=== PATIENT | male | born 1955 | race Caucasian/White ===

== ENCOUNTER 2017-04-09 09:21 | Observation (INO) | payer OTHER ==
[2017-04-09] VITALS (33 sets, daily range): BP systolic 103–141; BP diastolic 58–83; PULSE 54–80; RESP 12–29; Ht 170.2 cm; Wt 76.7 kg
[~2017-04-09] VITALS: Ht 170.2 cm; Wt 76.7 kg
[~2017-04-09 09:21] MED LIST: ASPI81TA3 PO; METO25TA4 PO; ROSU40TA35 PO; TICA90TA PO
[2017-04-09] MEDS ORDERED: ATOR40TA68 PO (09:52)
[2017-04-09] MEDS ORDERED: FAMO20TA18 PO (09:52)
[2017-04-09] MEDS ORDERED: LISI2.5T59 PO (09:53)
--- NOTE | 2017-04-09 10:19 | RADRPT ---
PROCEDURE: XR Chest AP portable CLINICAL INDICATION: Left heart cath TECHNIQUE: An AP portable radiograph of the chest was submitted. COMPARISON: 11/18/2015 FINDINGS: Support Hardware: None Cardiovascular: The cardiovascular silhouette appears unremarkable. Lung [place]: The lung [place] appear clear with no nodule, alveolar infiltrate, or interstitial promi nence evident. Pleural Spaces: No pneumothorax or pleural effusion is identified. Osseous Structures: The osseous structures appear intact. Soft Tissues: The soft tissues appear generous. IMPRESSION: Stable and unremarkable portable chest Physician Javid Date Time Electronically viewed and signed by Physician Javid on 04/09/2017 10:19 RH/
[2017-04-09] MEDS ORDERED: IODIXANOL LOCM 100 ML BTL ONE ×3 (11:05→12:37)
[2017-04-09] MEDS ORDERED: MIDAZOLAM 1 MG/ML 2 ML INJ ONE (11:05)
[2017-04-09] MEDS ORDERED: HEPARIN 1000 UNITS/ML 10 ML INJ ONE (11:05)
[2017-04-09] MEDS ORDERED: LIDOCAINE 1% (MDV) 20 ML INJ ONE (11:05)
[2017-04-09] MEDS ORDERED: VERAPAMIL 5 MG INJ ONE (11:06)
[2017-04-09] MEDS ORDERED: NITROGLYCERIN (IC) 100 MCG/ML INJ ONE (11:06)
[2017-04-09] MEDS ORDERED: FENTAnyl 50 MCG/ML VIAL ONE (11:06)
[2017-04-09] MEDS ORDERED: DIPHENHYDRAMINE 50 MG INJ ONE (11:31)
--- NOTE | 2017-04-09 11:59 | SIPON ---
Date/Time of Note Date/Time of Note DATE: 04/09/17 TIME: 11:57 Operative Report Preoperative Diagnosis angina and hx of cad and abnormal stress test Postoperative Diagnosis same Operation/Procedure Performed left heart cath Surgeon see signature line instructional support assistant none Anesthesia: moderate sedation, other Estimated blood loss: 0 - 10 ml's Transfusion Required none Specimen none Grafts/Implants none Complications none KENJI JACKSON MD Apr 09, 2017 11:59
--- NOTE | 2017-04-09 11:59 | SIPON ---
Date/Time of Note Date/Time of Note DATE: 04/09/17 TIME: 11:57 Operative Report Preoperative Diagnosis angina and hx of cad and abnormal stress test Postoperative Diagnosis same Operation/Procedure Performed left heart cath Surgeon see signature line sourcing assistant none Anesthesia: moderate sedation, other Estimated blood loss: 0 - 10 ml's Transfusion Required none Specimen none Grafts/Implants none Complications none KENJI JACKSON MD Apr 09, 2017 11:59
--- NOTE | 2017-04-09 11:59 | SIPON ---
Date/Time of Note Date/Time of Note DATE: 04/09/17 TIME: 11:57 Operative Report Preoperative Diagnosis angina and hx of cad and abnormal stress test Postoperative Diagnosis same Operation/Procedure Performed left heart cath Surgeon see signature line transition assistant none Anesthesia: moderate sedation, other Estimated blood loss: 0 - 10 ml's Transfusion Required none Specimen none Grafts/Implants none Complications none KENJI JACKSON MD Apr 09, 2017 11:59
[2017-04-09] MEDS ORDERED: BIVALIRUDIN 250MG /NS 50 ML 50 ML IVPB ONE (12:03)
[2017-04-09] MEDS ORDERED: CLOPIDOGREL 300 MG TAB ONE ×2 (12:03→12:45)
[2017-04-09] MEDS ORDERED: ADENOSINE 90 MG in SOD CHLORIDE 0.9% 90 ML IV SCH (13:00)
[2017-04-09] MEDS: SOD CHLORIDE 0.9% 1,000 ML IV SCH ×2 (13:12→19:00)
--- NOTE | 2017-04-09 13:12 | OPR ---
Date/Time of Note Date/Time of Note DATE: 04/09/17 TIME: 13:01 Operative Report Procedure Date: Apr 09, 2017 Preoperative Diagnosis CAD, ANGINA AND ABNORMAL STRESS TEST Postoperative Diagnosis same Surgeon see signature line Equal Opportunity Representative N/A Anesthesia Type: moderate sedation Estimated Blood Loss: none Transfusion none Specimen none Grafts/Implants none Complications none Procedure Description Habitat Biologist: Chao Concepcion MD Indication: 61 year old man with history of CAD, who underwent светлана angiography by Dr Gurwinder Seals for anginal chest pain and abnormal stress test. His angiogram showed multivessel disease and I was kindly asked by Dr. Anderson was taken to intervene. Procure performed: #1 Selective left coronary angioghraphy 2. Successful PTCA and stenting of 2 different branches of ramus intermediate using a 2.25x20 mm and 2.25x24 mm synergy GERRY 3. FFR (fractional flow measurement) of left circumflex artery 4. Closure of right femoral artery using an Angio-Seal device Findings: see Dr Purdy notes for detain of diagnostic светлана angio. 1. RI: is large. distally has 2 smaller branches each with about 80-90% stenosis ( ---->0% post PCI) 2. Left circumflex artery: is nondominant. it has 2 different about 60% stenosis . FFR was 0.87 consistent with a moderate but not hemodynamically significant stenosis. Procedure in detail: Written informed consent with obtained after risks benefits and alternatives discussed with the patient in detail. risks including but not limited to risk of infection vascular complications, bleeding complications, [place] stroke arrhythmia renal failure at even were discussed with the patient in detail. Patient was brought into the cardiac electroplating laborer and placed in supine position. Patient had already undergone diagnostic angiography by Dr. Rosaura weaver and sheath was already in place and right femoral angiogram had been done. At this time we decided to perform FFR measurements of the left circumflex artery. We ordered 3-/2 guide was advanced and engaged into the left main coronary artery. Once FFR wire was equilibrated it was placed proximal to the lesion and was equalized. Adenosine was a started and crossed the lesion. FFR measurement was done after about 3 minutes of adenosine infusion. FFR was at worst 0.87 consistent with a moderate but not hemodynamically significant stenosis. Wire was removed. At this time we decided to perform PCI of the ramus intermediate artery. BMW wire was used and advanced across the lesion and placed distal to the artery. I used a 2 x 12 mm balloon which was placed across the lesion and predilated the vessel. BMW wire was used and advanced across the 2nd lesion and placed distal to the artery. I used a 2 x 12 mm balloon which was placed across the lesion and predilated the vessel. Then I used a 2.25 x 20 mm stent which was placed across the lesion and deployed at 12 cristel. .Then I used a 2.25 x 24 mm stent which was placed across the 2nd lesion in the 2nd branch and deployed at 12 cristel. . Final angiographic view was obtained which showed IVONNE-3 flow no evidence of dissection and no significant residual stenosis at the site of the stent. angiseal was successfully deployed. Patient tolerated the procedure well with no complication. Conclusions: Successful PTCA stenting of the 2 branches of the ramus intermediate artery from 80-90% stenosis to no significant residual stenosis using a 2.25 stents. Recommendations: Aggressive medical therapy. aspirin indefinitely dual antiplatlet therapy with Plavix ICU care overnight. CHAO CONCEPCION MD [facility] CHAO CONCEPCION MD Apr 09, 2017 13:12
--- NOTE | 2017-04-09 13:12 | OPR ---
Date/Time of Note Date/Time of Note DATE: 04/09/17 TIME: 13:01 Operative Report Procedure Date: Apr 09, 2017 Preoperative Diagnosis CAD, ANGINA AND ABNORMAL STRESS TEST Postoperative Diagnosis same Surgeon see signature line Appliance Sales Associate N/A Anesthesia Type: moderate sedation Estimated Blood Loss: none Transfusion none Specimen none Grafts/Implants none Complications none Procedure Description Sausage Wrapper: Chao Concepcion MD Indication: 61 year old man with history of CAD, who underwent светлана angiography by Dr Gurwinder Seals for anginal chest pain and abnormal stress test. His angiogram showed multivessel disease and I was kindly asked by Dr. Anderson was taken to intervene. Procure performed: #1 Selective left coronary angioghraphy 2. Successful PTCA and stenting of 2 different branches of ramus intermediate using a 2.25x20 mm and 2.25x24 mm synergy GERRY 3. FFR (fractional flow measurement) of left circumflex artery 4. Closure of right femoral artery using an Angio-Seal device Findings: see Dr Purdy notes for detain of diagnostic светлана angio. 1. RI: is large. distally has 2 smaller branches each with about 80-90% stenosis ( ---->0% post PCI) 2. Left circumflex artery: is nondominant. it has 2 different about 60% stenosis . FFR was 0.87 consistent with a moderate but not hemodynamically significant stenosis. Procedure in detail: Written informed consent with obtained after risks benefits and alternatives discussed with the patient in detail. risks including but not limited to risk of infection vascular complications, bleeding complications, [place] stroke arrhythmia renal failure at even were discussed with the patient in detail. Patient was brought into the cardiac grinding and polishing laborer and placed in supine position. Patient had already undergone diagnostic angiography by Dr. Rosaura weaver and sheath was already in place and right femoral angiogram had been done. At this time we decided to perform FFR measurements of the left circumflex artery. We ordered 3-/2 guide was advanced and engaged into the left main coronary artery. Once FFR wire was equilibrated it was placed proximal to the lesion and was equalized. Adenosine was a started and crossed the lesion. FFR measurement was done after about 3 minutes of adenosine infusion. FFR was at worst 0.87 consistent with a moderate but not hemodynamically significant stenosis. Wire was removed. At this time we decided to perform PCI of the ramus intermediate artery. BMW wire was used and advanced across the lesion and placed distal to the artery. I used a 2 x 12 mm balloon which was placed across the lesion and predilated the vessel. BMW wire was used and advanced across the 2nd lesion and placed distal to the artery. I used a 2 x 12 mm balloon which was placed across the lesion and predilated the vessel. Then I used a 2.25 x 20 mm stent which was placed across the lesion and deployed at 12 cristel. .Then I used a 2.25 x 24 mm stent which was placed across the 2nd lesion in the 2nd branch and deployed at 12 cristel. . Final angiographic view was obtained which showed IVONNE-3 flow no evidence of dissection and no significant residual stenosis at the site of the stent. angiseal was successfully deployed. Patient tolerated the procedure well with no complication. Conclusions: Successful PTCA stenting of the 2 branches of the ramus intermediate artery from 80-90% stenosis to no significant residual stenosis using a 2.25 stents. Recommendations: Aggressive medical therapy. aspirin indefinitely dual antiplatlet therapy with Plavix ICU care overnight. CHAO CONCEPCION MD [facility] CHAO CONCEPCION MD Apr 09, 2017 13:12
--- NOTE | 2017-04-09 13:12 | OPR ---
Date/Time of Note Date/Time of Note DATE: 04/09/17 TIME: 13:01 Operative Report Procedure Date: Apr 09, 2017 Preoperative Diagnosis CAD, ANGINA AND ABNORMAL STRESS TEST Postoperative Diagnosis same Surgeon see signature line Substation Technician N/A Anesthesia Type: moderate sedation Estimated Blood Loss: none Transfusion none Specimen none Grafts/Implants none Complications none Procedure Description Optical Engineer: Chao Concepcion MD Indication: 61 year old man with history of CAD, who underwent светлана angiography by Dr Gurwinder Seals for anginal chest pain and abnormal stress test. His angiogram showed multivessel disease and I was kindly asked by Dr. Anderson was taken to intervene. Procure performed: #1 Selective left coronary angioghraphy 2. Successful PTCA and stenting of 2 different branches of ramus intermediate using a 2.25x20 mm and 2.25x24 mm synergy GERRY 3. FFR (fractional flow measurement) of left circumflex artery 4. Closure of right femoral artery using an Angio-Seal device Findings: see Dr Purdy notes for detain of diagnostic светлана angio. 1. RI: is large. distally has 2 smaller branches each with about 80-90% stenosis ( ---->0% post PCI) 2. Left circumflex artery: is nondominant. it has 2 different about 60% stenosis . FFR was 0.87 consistent with a moderate but not hemodynamically significant stenosis. Procedure in detail: Written informed consent with obtained after risks benefits and alternatives discussed with the patient in detail. risks including but not limited to risk of infection vascular complications, bleeding complications, [place] stroke arrhythmia renal failure at even were discussed with the patient in detail. Patient was brought into the cardiac labor mediator and placed in supine position. Patient had already undergone diagnostic angiography by Dr. Rosaura weaver and sheath was already in place and right femoral angiogram had been done. At this time we decided to perform FFR measurements of the left circumflex artery. We ordered 3-/2 guide was advanced and engaged into the left main coronary artery. Once FFR wire was equilibrated it was placed proximal to the lesion and was equalized. Adenosine was a started and crossed the lesion. FFR measurement was done after about 3 minutes of adenosine infusion. FFR was at worst 0.87 consistent with a moderate but not hemodynamically significant stenosis. Wire was removed. At this time we decided to perform PCI of the ramus intermediate artery. BMW wire was used and advanced across the lesion and placed distal to the artery. I used a 2 x 12 mm balloon which was placed across the lesion and predilated the vessel. BMW wire was used and advanced across the 2nd lesion and placed distal to the artery. I used a 2 x 12 mm balloon which was placed across the lesion and predilated the vessel. Then I used a 2.25 x 20 mm stent which was placed across the lesion and deployed at 12 cristel. .Then I used a 2.25 x 24 mm stent which was placed across the 2nd lesion in the 2nd branch and deployed at 12 cristel. . Final angiographic view was obtained which showed IVONNE-3 flow no evidence of dissection and no significant residual stenosis at the site of the stent. angiseal was successfully deployed. Patient tolerated the procedure well with no complication. Conclusions: Successful PTCA stenting of the 2 branches of the ramus intermediate artery from 80-90% stenosis to no significant residual stenosis using a 2.25 stents. Recommendations: Aggressive medical therapy. aspirin indefinitely dual antiplatlet therapy with Plavix ICU care overnight. CHAO CONCEPCION MD [facility] CHAO CONCEPCION MD Apr 09, 2017 13:12
[2017-04-09] MEDS ORDERED: ONDANSETRON 4 MG INJ IV PRN (13:30)
[2017-04-09] MEDS ORDERED: NITROGLYCERIN (SL) 0.4 MG TAB SL PRN (13:30)
[2017-04-09] MEDS ORDERED: ACETAMINOPHEN 325 MG TAB PO PRN (13:30)
[2017-04-09] MEDS ORDERED: AL HYDROX/MG HYDROX/SIMETH 30 ML CUP PO PRN (13:30)
--- NOTE | 2017-04-09 14:55 | OPR ---
DATE OF OPERATION: 04/09/2017 INDICATION FOR THE PROCEDURE: Abnormal cardiac stress test with history of coronary artery disease. The patient had ST depression in the lateral leads. Therefore, now presents for a cardiac catheteri zation. PROCEDURE: 1. Left heart catheterization. 2. Selective right coronary angiography. 3. Selective left coronary angiography. 4. A long and complex case due to the fact that attempted placement of a wire was performed from th e right radial region; however, the patient had a tortuous anatomy in the chest where the aorta and subclavian arteries. Therefore, right groin was then accessed. 5. Left ventriculogram. 6. Fluoroscopy and fluoroscopic use in order to guide needle placement to the vessel. 7. Conscious sedation for approximately 1 hour. 8. Autonomic nervous system interrogation. DESCRIPTION OF PROCEDURE: After informed consent was obtained by the patient, the patient was broug ht in to the cardiac catheterization laboratory where the patient's right radial region was prepped and draped in usual sterile fashion along with the right groin. Right radial stick was performed wi th no complication, sheath was placed. Following this, a wire was placed through the sheath in orde r to gain access into the aorta near the sinus of Valsalva. However, the tortuosity did not allow u s to place the wire into the aortic root region. Therefore, after multiple attempts and changing wi res and sheaths, therefore, the patient had placement of a catheter into the right femoral artery an d from here access was performed into the right coronary artery and left coronary artery, as well as left ventriculogram was also performed. FINDINGS: 1. The patient had a patent left main. The left main gave 2 branches to the LAD as well as the cir cumflex artery. 2. The LAD had approximately a 70-80%, vascular lesions in the middle of the vessel. 3. Septal perforators were patent. 4. The circumflex artery had 2 different regions in the proximal area where it was approximately 70 -80% stenotic. 5. The RCA was patent except for the distal region of the PDA which had approximately a 50% lesion. 6. The stent in the RCA was patent. 7. Left ventriculogram was performed and ejection fraction 65% and LVEDP was 13 mmHg with a blood p ressure 107/62. IMPRESSION: 1. There is 2-vessel disease present at the current moment, which will require intervention, at mara st an FFR. I have contacted Dr. Concepcion who attended to the patient. And Dr. Concepcion will performed the FFR. In the event that the FFR is positive, the patient will received stents. Dictated By: KENJI JACKSON MD LP/NTS Conf#: [id number] DID#: [id number]
--- NOTE | 2017-04-09 14:57 | RADRPT ---
Vent Rate: 68 bpm RR Interval: 0 msec [place] Interval: 140 msec QRS Duration: 102 msec QT Interval: 430 msec QTC Interval: 457 msec P-R-T [place]: 68 - 12 - 34 degrees Normal sinus rhythm Possible Inferior infarct , age undetermined Abnormal ECG Electronically Signed By: Dawit Palmer [id number]
--- NOTE | 2017-04-09 14:57 | RADRPT ---
Vent Rate: 68 bpm RR Interval: 0 msec [place] Interval: 140 msec QRS Duration: 102 msec QT Interval: 430 msec QTC Interval: 457 msec P-R-T [place]: 68 - 12 - 34 degrees Normal sinus rhythm Possible Inferior infarct , age undetermined Abnormal ECG Electronically Signed By: Dawit Palmer [id number]
--- NOTE | 2017-04-09 14:57 | RADRPT ---
Vent Rate: 68 bpm RR Interval: 0 msec [place] Interval: 140 msec QRS Duration: 102 msec QT Interval: 430 msec QTC Interval: 457 msec P-R-T [place]: 68 - 12 - 34 degrees Normal sinus rhythm Possible Inferior infarct , age undetermined Abnormal ECG Electronically Signed By: Dawit Palmer [id number]
[2017-04-09] MEDS: FAMOTIDINE 20 MG TAB PO SCH (15:02)
[2017-04-09] MEDS: ASPIRIN 81 MG TAB PO SCH (15:06)
[2017-04-09] MEDS: morphine 2 MG INJ IV PRN ×3 (16:27→22:55)
--- NOTE | 2017-04-09 16:28 | QN ---
Documentation Comment [id number] SALLY RETANA MD Apr 09, 2017 16:28
--- NOTE | 2017-04-09 16:28 | QN ---
Documentation Comment [id number] SALLY RETANA MD Apr 09, 2017 16:28
--- NOTE | 2017-04-09 16:28 | QN ---
Documentation Comment [id number] SALLY RETANA MD Apr 09, 2017 16:28
[2017-04-09] MEDS ORDERED: LORAZEPAM 2 MG INJ IV PRN (16:30)
[2017-04-09] MEDS: OXYCODONE/ACETAMINOPHEN (5/325) TAB PO PRN (19:54)
[2017-04-09] MEDS ORDERED: ATORVASTATIN 40 MG TAB PO SCH (21:00)
[2017-04-09] MEDS ORDERED: ISOSORBIDE DINITRATE 20 MG TAB PO SCH (21:00)
[2017-04-09] MEDS ORDERED: METOPROLOL 25 MG TAB PO SCH (21:00)
[2017-04-10] VITALS (19 sets, daily range): BP systolic 90–115; BP diastolic 61–71; PULSE 53–66; RESP 12–29
[2017-04-10] MEDS: OXYCODONE/ACETAMINOPHEN (5/325) TAB PO PRN (00:23)
[2017-04-10] MEDS: DOCUSATE SODIUM 100 MG CAP PO SCH ×2 (00:23→08:29)
--- NOTE | 2017-04-10 01:08 | HP ---
DATE OF ADMISSION: 04/09/2017 HISTORY OF PRESENT ILLNESS: Lindsey Sellers is a 61-year-old male who has a history of STEMI, history of PCI with RCA stent placed in April 2015, history of CAD, hypertension, dyslipidemia, history of gastritis. Patient now presents for coronary angiogram, underwent angiogram and PCI and is being seen post-procedure. PAST MEDICAL HISTORY: As mentioned above, positive for CAD status post coronary angiogram and PCI, history of STEMI, hypertension, dyslipidemia. ALLERGY HISTORY: LISTED _neg. SOCIAL HISTORY: Positive for smoking. No alcohol abuse. MEDICATION HISTORY: 1. Positive for aspirin. 2. Lipitor. 3. Pepcid. 4. Lisinopril. 5. Metoprolol. REVIEW OF SYSTEMS: HEENT: Unremarkable. RESPIRATORY: Unremarkable. CARDIOVASCULAR: Complaining of no chest pain, palpitations. ABDOMEN: Unremarkable. EXTREMITIES: Unremarkable. GENITOURINARY: Unremarkable. PHYSICAL EXAMINATION: GENERAL: The patient is awake, alert. VITAL SIGNS: Pulse 70, blood pressure 120/76. HEAD: Atraumatic, normocephalic. Pupils are equal, reactive. NECK: Supple. There is no JVD. LUNGS: Clear. CARDIOVASCULAR: S1, S2 normal. ABDOMEN: Soft, nontender. Bowel sounds present. No palpable mass or hepatosplenomegaly. EXTREMITIES: There is no cyanosis, clubbing or edema. CENTRAL NERVOUS SYSTEM: The patient is awake, alert with no focal deficit. LABORATORY DATA: Not available from this hospital. IMPRESSION: 1. Status post coronary angiogram and percutaneous coronary intervention. 2. Patient has hypertension. 3. Dyslipidemia. 4. History of ST elevation myocardial infarction. PLAN: At this point is to continue home medication, follow laboratory data. Pain medication, the patient is currently on Tylenol, aspirin, Lipitor, Plavix, _Pepcid. The patient is on lisinopril, lorazepam, metoprolol, nitroglycerin. Dictated By: SALLY RETANA MD BS/NTS Conf#: [id number] DID#: [id number] CC: KENJI JACKSON MD;*EndCC* MTDD
[2017-04-10] MEDS: SOD CHLORIDE 0.9% 1,000 ML IV SCH (01:44)
[2017-04-10] MEDS: ASPIRIN 81 MG TAB PO SCH (08:29)
[2017-04-10] MEDS: FAMOTIDINE 20 MG TAB PO SCH (08:29)
[2017-04-10] MEDS ORDERED: LISINOPRIL 5 MG TAB PO SCH (09:00)
[2017-04-10] MEDS ORDERED: CLOPIDOGREL 75 MG TAB PO SCH (09:00)
--- NOTE | 2017-04-10 09:21 | PDOCDIS ---
Discharge Instructions CONDITION Patient Condition: Stable HOME CARE INSTRUCTIONS: Special Diet: Cardiac diet ACTIVITY: Activity Restrictions: Slowly Increase Activity FOLLOW UP/APPOINTMENTS Follow-up Plan f/u own pcp [address] ab montiel 1 wk SALLY RETANA MD Apr 10, 2017 09:21
[2017-04-10] MEDS ORDERED: NIT4 SL (09:23)
[2017-04-10] MEDS ORDERED: ISOS20TA19 PO (09:23)
[2017-04-10] MEDS ORDERED: METO25TA4 PO (09:23)
[2017-04-10] MEDS ORDERED: CLOP75TA28 PO (09:23)
--- NOTE | 2017-04-10 19:31 | RADRPT ---
Vent Rate: 55 bpm RR Interval: 0 msec [place] Interval: 140 msec QRS Duration: 98 msec QT Interval: 464 msec QTC Interval: 443 msec P-R-T [place]: 68 - 22 - 26 degrees Sinus bradycardia Otherwise normal ECG Electronically Signed By: Dawit Palmer [id number]
--- NOTE | 2017-04-10 19:31 | RADRPT ---
Vent Rate: 62 bpm RR Interval: 0 msec [place] Interval: 138 msec QRS Duration: 100 msec QT Interval: 440 msec QTC Interval: 446 msec P-R-T [place]: 72 - 19 - 39 degrees Normal sinus rhythm Possible Lateral infarct , age undetermined Possible Inferior infarct , age undetermined Abnormal ECG Electronically Signed By: Dawit Palmer [id number]
--- NOTE | 2017-04-10 19:31 | RADRPT ---
Vent Rate: 62 bpm RR Interval: 0 msec [place] Interval: 138 msec QRS Duration: 100 msec QT Interval: 440 msec QTC Interval: 446 msec P-R-T [place]: 72 - 19 - 39 degrees Normal sinus rhythm Possible Lateral infarct , age undetermined Possible Inferior infarct , age undetermined Abnormal ECG Electronically Signed By: Dawit Palmer [id number]
--- NOTE | 2017-04-10 19:31 | RADRPT ---
Vent Rate: 62 bpm RR Interval: 0 msec [place] Interval: 138 msec QRS Duration: 100 msec QT Interval: 440 msec QTC Interval: 446 msec P-R-T [place]: 72 - 19 - 39 degrees Normal sinus rhythm Possible Lateral infarct , age undetermined Possible Inferior infarct , age undetermined Abnormal ECG Electronically Signed By: Dawit Palmer [id number]
--- NOTE | 2017-04-10 19:31 | RADRPT ---
Vent Rate: 55 bpm RR Interval: 0 msec [place] Interval: 140 msec QRS Duration: 98 msec QT Interval: 464 msec QTC Interval: 443 msec P-R-T [place]: 68 - 22 - 26 degrees Sinus bradycardia Otherwise normal ECG Electronically Signed By: Dawit Palmer [id number]
--- NOTE | 2017-04-10 19:31 | RADRPT ---
Vent Rate: 55 bpm RR Interval: 0 msec [place] Interval: 140 msec QRS Duration: 98 msec QT Interval: 464 msec QTC Interval: 443 msec P-R-T [place]: 68 - 22 - 26 degrees Sinus bradycardia Otherwise normal ECG Electronically Signed By: Dawit Palmer [id number]
--- NOTE | 2017-04-14 12:06 | QN ---
Documentation Comment [id number] SALLY RETANA MD Apr 14, 2017 12:06
--- NOTE | 2017-04-14 12:06 | QN ---
Documentation Comment [id number] SALLY RETANA MD Apr 14, 2017 12:06
--- NOTE | 2017-04-14 12:06 | QN ---
Documentation Comment [id number] SALLY RETANA MD Apr 14, 2017 12:06
--- NOTE | 2017-04-14 19:47 | DS ---
DATE OF ADMISSION: 04/09/2017 DATE OF DISCHARGE: 04/10/2017 HOSPITAL COURSE: The patient, Lindsey Sellers is a 61-year-old male with history of STEMI, history of PCI and RCA, stent placement in the past, presented with anginal symptoms, underwent coronary ang iogram and PCI. The patient has a post ____(00:30) chest wall pain, was seen by cardiology, cleared to be discharged home. The patient also has hypertension, dyslipidemia. The patient has status post coronary angiogram and PCI, hypertension, dyslipidemia, history of ST el evation myocardial infarction. DISCHARGE MEDICATIONS: Includes, continue: 1. Plavix. 2. Isosorbide. 3. Nitroglycerin. 4. Aspirin. 5. Lipitor. 6. Pepcid. 7. Lisinopril. 8. Metoprolol. Will follow up with Dr. Mabry and primary care doctor as an outpatient. Dictated By: SALLY RETANA MD BS/ALVARO Conf#: [id number] DID#: [id number]
[2017-04-17] MEDS ORDERED: FENTAnyl 50 MCG/ML VIAL ONE (18:26)
[2017-04-17] MEDS ORDERED: PROPOFOL 0 ML ONE (18:26)
== END 2017-04-10 11:15 | disposition home or self-care (01) ==
LOC: SDS 09:21 → REC 14:32 → ICU 18:10
PROVIDERS: ADMIT Internal Medicine; ATTEND Internal Medicine
DX: I20.8 Other forms of angina pectoris (principal); I10 Essential (primary) hypertension; E78.5 Hyperlipidemia, unspecified; I25.2 Old myocardial infarction; Z95.5 Presence of coronary angioplasty implant and graft
CPT/HCPCS: 71010; 80048; 82550; 85025; 87081; 93005; 93458; C1725; C1874; C1887; C1894; C9600; C9601; J0153; J0583; J1200; J1644; J2250; J2270; J3010; Q9967; Z7500; Z7610; 99217; G0378

== ENCOUNTER 2017-05-18 10:31 | Inpatient (IN) | payer OTHER ==
[~2017-05-18] VITALS: Ht 172.7 cm; Wt 79.5 kg
[~2017-05-18 10:31] MED LIST changes: +ATOR40TA68 PO; +CLOP75TA28 PO; +FAMO20TA18 PO; +ISOS20TA19 PO; +LISI2.5T59 PO; +NITR0.4T39 SL; -ROSU40TA35 PO; -TICA90TA PO
[2017-05-18] MEDS ORDERED: SOD CHLORIDE 0.9% 1,000 ML IV STA (12:59)
--- NOTE | 2017-05-18 13:40 | ERD ---
ER Documentation Chief Complaint Chief Complaint chest pain radiating to back x 1 day HPI 61-year-old man with 2 complaints including left facial paresis and paresthesias , gait ataxia, and mild slurred speech beginning yesterday (about 24 hours ago) . Patient states these symptoms have remained constant since. He denies difficulty swallowing and denies weakness in his arms or legs. Patient also states today he developed pressure-like sensation to the substernal chest, radiating to the back. He states he used aspirin and an extra dose of nitroglycerin this morning with some relief in those symptoms. He is status post PCI and stent placement 1 month ago. Patient denies fevers or chills, no shortness of breath, no cough, no calf or leg swelling, no vomiting, no headache or blurry vision. ROS All systems reviewed and are negative except as per history of present illness. Medications Home Meds Active Scripts Nitroglycerin* (Nitrostat*) 0.4 Mg Tab.subl, 1 TAB SL Q5M Y for CHEST PAIN for 28 Days Prov:SALLY RETANA MD 04/10/17 Isosorbide Dinitrate* (Isosorbide Dinitrate*) 20 Mg Tablet, 20 MG PO TID for 28 Days, TAB Prov:SALLY RETANA MD 04/10/17 Clopidogrel Bisulfate (Clopidogrel) 75 Mg Tablet, 75 MG PO DAILY for 30 Days, TAB Prov:SALLY RETANA MD 04/10/17 Metoprolol Tartrate* (Lopressor*) 25 Mg Tablet, 25 MG PO BID for 28 Days Prov:SALLY RETANA MD 04/10/17 Reported Medications Lisinopril* (Lisinopril*) 2.5 Mg Tablet, 2.5 MG PO DAILY, #30 TAB 04/09/17 Atorvastatin* (Atorvastatin*) 40 Mg Tablet, 40 MG PO QHS, #30 TAB 04/09/17 Famotidine* (Famotidine*) 20 Mg Tablet, 20 MG PO DAILY, #30 TAB 04/09/17 Aspirin* (Aspirin* Chew) 81 Mg Tab.chew, 81 MG PO DAILY 04/25/12 Allergies Allergies: Coded Allergies: rofecoxib (Verified Allergy, Mild, 04/09/17) PMhx/Soc Hypertension, CAD, dyslipidemia, PCI with stent placement Anesthesia Reaction: No Hx Neurological Disorder: No Hx Respiratory Disorders: No Hx Cardiac Disorders: Yes (HTN) Hx Psychiatric Problems: No Hx Miscellaneous Medical Probl: No Hx Alcohol Use: No Hx Substance Use: No Hx Tobacco Use: Yes FmHx Family History: No diabetes Physical Exam Vitals Vital Signs Date Time Temp Pulse Resp B/P Pulse Ox O2 Delivery O2 Flow Rate FiO2 05/18/17 16:00 98.3 60 20 81/41 95 Room Air 05/18/17 10:33 97.7 64 18 110/70 100 Physical Exam GENERAL: Well-developed, well-nourished, well-hydrated, in no apparent distress , looks nontoxic in appearance HEENT: Moist mucous membranes, pink conjunctiva, no cervical spine tenderness or step-off deformities, no goiter, no jaundice or icterus, extraocular movements intact without pain. No submandibular induration, and no pharyngeal erythema NEURO: Alert and oriented 3, mild left facial paresis is noted, no pronator drift, legal process specialist strength 5 out of 5 bilaterally lower extremity deficits noted, pupils equal round reactive to light CARDIAC: Regular rate and rhythm, no murmurs rubs or gallops LUNGS: Clear bilaterally no wheezing crackles or stridor ABDOMEN: Soft nontender, no guarding, no rigidity, no rebound, no psoas sign no obturator sign. Normoactive bowel sounds SKIN: Warm and dry to touch, no abrasions, contusions, or hematomas, no lacerations, no ecchymosis, no target lesions, and without ulcers EXTREMITIES: No clubbing cyanosis or edema, calves are bilaterally symmetrical, no Homans sign, no popliteal cord sign. Distal pulses equal and bilateral PSYCH: Normal affect without agitation or irritability Result Diagram: 05/18/17 1300 05/18/17 1300 Results 24 hrs Laboratory Tests Test 05/18/17 13:00 White Blood Count 8.010^3/ul Red Blood Count 5.3610^6/ul Hemoglobin 15.1g/dl Hematocrit 45.3% Mean Corpuscular Volume 84.5fl Mean Corpuscular Hemoglobin 28.2pg Mean Corpuscular Hemoglobin Concent 33.3g/dl Red Cell Distribution Width 13.3% Platelet Count 14952^3/UL Mean Platelet Volume 8.8fl Neutrophils % 50.1% Lymphocytes % 33.7% Monocytes % 11.6% Eosinophils % 3.3% Basophils % 0.8% Nucleated Red Blood Cells % 0.0/100WBC Neutrophils # 4.010^3/ul Lymphocytes # 2.710^3/ul Monocytes # 0.910^3/ul Eosinophils # 0.310^3/ul Basophils # 0.110^3/ul Nucleated Red Blood Cells # 0.010^3/ul Prothrombin Time 11.7Sec Prothrombin Time Ratio 0.9 INR International Normalized Ratio 0.85 Sodium Level 140mmol/L Potassium Level 4.5mmol/L Chloride Level 104mmol/L Carbon Dioxide Level 27mmol/L Anion Gap 14 Blood Urea Nitrogen 14mg/dl Creatinine 0.92mg/dl Glucose Level 94mg/dl Calcium Level 9.2mg/dl Total Bilirubin 0.5mg/dl Direct Bilirubin 0.00mg/dl Indirect Bilirubin 0.5mg/dl Aspartate Amino Transf (AST/SGOT) 33IU/L Alanine Aminotransferase (ALT/SGPT) 92IU/L Alkaline Phosphatase 41IU/L Troponin I 0.012ng/ml Total Protein 6.7g/dl Albumin 4.0g/dl Globulin 2.70g/dl Albumin/Globulin Ratio 1.48 Lipase 103U/L Current Medications Medications (Trade) Dose Ordered Sig/Luis Route PRN Reason Start Time Stop Time Status Last Admin Dose Admin Sodium Chloride (NS) 1,000 ml @ 1,000 mls/hr Q1H STAT IV 05/18/17 12:59 05/18/17 13:58 DC 05/18/17 13:31 IV Flush 10 ml 10 ml STK-MED ONCE .ROUTE 05/18/17 14:59 05/18/17 15:00 DC Sodium Chloride 100 ml @ ud STK-MED ONCE .ROUTE 05/18/17 14:59 05/18/17 15:00 DC Iohexol 100 ml @ ud STK-MED ONCE .ROUTE 05/18/17 14:59 05/18/17 15:00 DC Sodium Chloride (NS) 1,000 ml @ 1,000 mls/hr Q1H ONCE IV 05/18/17 16:30 05/18/17 17:29 05/18/17 16:49 Atorvastatin Calcium (Lipitor) 40 mg ONCE ONCE PO 05/18/17 17:00 05/18/17 17:05 DC Procedures/[facility] IV line was established patient was placed on newspaper inserter rhythm strip revealed a sinus rhythm at about 80 bpm with upright P and T waves. Patient was afebrile One AP view of the chest performed, read by me reveals no acute infiltrates, normal mediastinum, sharp costophrenic and cardiac borders, no air under the diaphragm. Otherwise unremarkable chest x-ray. CT scan of the brain was negative for acute bleed mass or shift. Initial EKG revealed a normal sinus rhythm at 80 bpm, left axis deviation, narrow QRS complex, no concerning ST elevations or depressions noted although there are T-wave inversions in inferior leads, appear chronic. EKG #2 was performed about 2 hours later revealing a sinus bradycardia 55 bpm, left axis deviation, narrow QRS complex, no concerning ST elevations or depressions noted, again T-wave inversions in lead III and aVF. No concerning ST elevations or depressions noted. I administered 1 L normal saline intravenously. Patient already used aspirin nitroglycerin at home. CT angiogram cerebrum and neck was performed. Angiograms were negative for acute vascular stenosis or thrombus. Please refer to radiologist dictation for full report. CBC and electrolytes were normal, liver function tests were normal, troponin was negative. I obtained consultation with his associate professor of kinesiology Dr. Mabry. He saw the patient at the bedside please refer to his dictation for his report and continue medical management. Patient admitted to telemetry setting under Dr. Retana. Patient presented today with both acute cardiac and neurologic issues, both are concerning, he will be admitted to telemetry setting for continued medical, cardiac, and neurology workup. He may require MRI of the brain to rule out stroke. Departure Diagnosis: Primary Impression: Chest pain Chest pain type: unspecified Qualified Code: R07.9 - Chest pain, unspecified type Additional Impressions: Stroke CVA mechanism: unspecified Qualified Code: I63.9 - Cerebrovascular accident (CVA), unspecified mechanism Ataxic gait Condition: THOMAS Naylor MD May 18, 2017 13:40
[2017-05-18 13:41] LABS: BASOPHIL # 0.1 10^3/ul (0.0-0.1); BASOPHILS % 0.8 % (0.0-2.0); EOSINOPHILS # 0.3 10^3/ul (0.0-0.5); EOSINOPHILS % 3.3 % (0.0-7.0); HEMATOCRIT 45.3 % (42.0-52.0); HEMOGLOBIN 15.1 g/dl (14.0-18.0); LYMPHOCYTES # 2.7 10^3/ul (0.8-2.9); LYMPHOCYTES % 33.7 % (15.0-51.0); MEAN CORPUSCULAR HEMOGLOBIN 28.2 pg (29.0-33.0); MEAN CORPUSCULAR HGB CONC 33.3 g/dl (32.0-37.0); MEAN CORPUSCULAR VOLUME 84.5 fl (82.0-101.0); MEAN PLATELET VOLUME 8.8 fl (7.4-10.4); MONOCYTE # 0.9 10^3/ul (0.3-0.9); MONOCYTES % 11.6 % (0.0-11.0); NEUTROPHILS % 50.1 % (39.0-77.0); PLATELET COUNT 229 10^3/UL (140-415); RED BLOOD COUNT 5.36 10^6/ul (4.70-6.10); RED CELL DISTRIBUTION WIDTH 13.3 % (11.5-14.5)
[2017-05-18 13:57] LABS: BILIRUBIN,INDIRECT 0.5 mg/dl (0-1.1); BILIRUBIN,TOTAL 0.5 mg/dl (0.2-1.3); CALCIUM 9.2 mg/dl (8.4-10.2); CREATININE 0.92 mg/dl (0.61-1.24); POTASSIUM 4.5 mmol/L (3.5-5.1)
[2017-05-18 13:58] LABS: ALBUMIN/GLOBULIN RATIO 1.48; TOTAL PROTEIN 6.7 g/dl (6.1-8.1)
[2017-05-18 14:04] LABS: INR 0.85; PROTIME 11.7 Sec (11.9-14.9); PT RATIO 0.9
[2017-05-18 14:09] LABS: TROPONIN-I 0.012 ng/ml (0.00-0.12)
--- NOTE | 2017-05-18 14:15 | RADRPT ---
PROCEDURE: XR Chest. CLINICAL INDICATION: Chest pain TECHNIQUE: AP view of the chest was performed. COMPARISON: November 18, 2015 FINDINGS: The cardiomediastinal silhouette is within normal limits. The lungs are clear. No signs of pleural f luid or pneumothorax are seen. The osseous structures and soft tissues are unremarkable. IMPRESSION: No evidence for active cardiopulmonary disease. No interval change. RPTAT: QQ .Vandana Alcantara MD, MD Date Time Electronically viewed and signed by .Vandana Alcantara MD, on 05/18/2017 14:14 .F/
[2017-05-18] MEDS ORDERED: SOD CHLORIDE 0.9% 100 ML ONE (14:59)
[2017-05-18] MEDS ORDERED: IOHEXOL 100 ML ONE (14:59)
--- NOTE | 2017-05-18 15:55 | RADRPT ---
PROCEDURE: CT Brain without contrast. CLINICAL INDICATION: Altered mental status TECHNIQUE: A CT of the brain was performed on a multi-slice CT scanner utilizing axial imaging fro m the skull base through the vertex without IV contrast. Multiplanar reformatted images were made. Images were reviewed on a PACS workstation. The CTDIvol is 43.05 mGy and the DLP is 720 mGycm. One or more of the following dose reduction techniques were used: Automated exposure control. Adjustment of the mA and/or kV according to patient's size. Use of iterative reconstruction technique. DICOM images are available. COMPARISON: 01/14/2013 FINDINGS: The sulcal gyral pattern is unremarkable without evidence of effacement. The ruth-white matter diff erentiation is intact. The patient is again noted to have a cavum septum post and cavum vergae whic h are normal variants. No masses, edema or shift is identified. There are no intraparenchymal or extraaxial fluid collecti ons. The visualized paranasal sinuses and mastoid air cells are well-aerated. The skull base and calvari um are intact. IMPRESSION: No acute intracranial abnormalities are identified. RPTAT:AAJJ Physician Mary Ann Date Time Electronically viewed and signed by Physician Mary Ann on 05/18/2017 15:55 /
--- NOTE | 2017-05-18 16:11 | RADRPT ---
PROCEDURE: CT Angiogram of the head and neck with intravenous contrast CLINICAL INDICATION: Hypertension. Status post PTCA. COMPARISON: CT head 05/18/2017. TECHNIQUE: CT angiogram of the head and neck was obtained. Sagittal and coronal reformations and ma ximum intensity projection reconstructions were provided. Images were obtained before and after the uneventful administration of 100 mL Omnipaque 350 intravenous contrast. Direct measurements of vesse l diameters was made in reference to measurements of the distal internal carotid artery diameter. DOSE: The estimated administered radiation dose was CTDI vol = 78.37, 15.47 mGy. DLP = 664.03 mGy-c m. One or more of the following dose reduction techniques were used: automated exposure control, adj ustment of the mA and/or kV according to patient size, or use of iterative reconstruction technique. DICOM images are available. FINDINGS: BRAIN Parenchyma: No acute hemorrhage, large territorial infarction, abnormal enhancement, or mass. Mild p arenchymal volume loss. Mild microvascular white matter ischemic disease. Ventricles: No ventricular enlargement or effacement. Variation cava septum pellucidum and vergae. Extra-axial spaces: No herniation or midline shift. Paranasal sinuses: Clear. Mastoid air cells: Clear. Bones: Normal Additional comment: None. CEREBRAL ANGIOGRAM Aneurysm: No aneurysm identified. Anterior circulation: Internal carotid arteries: No flow-limiting stenosis. Anterior cerebral arteries: No flow-limiting stenosis. Middle cerebral arteries: No flow-limiting stenosis. Posterior cerebral arteries: No flow-limiting stenosis. Anterior communicating artery: No flow-limiting stenosis. Posterior communicating arteries: Bilaterally present. Posterior circulation: Basilar artery: No flow-limiting stenosis. V3/V4 vertebral arteries: No flow-limiting stenosis. Dural venous sinuses: Patent. NECK ANGIOGRAM Aorta: No flow-limiting stenosis. Right common carotid artery: No flow-limiting stenosis. Right internal carotid artery: No flow-limiting stenosis. Right external carotid artery: No flow-limiting stenosis. Left common carotid artery: No flow-limiting stenosis. Left internal carotid artery: No flow-limiting stenosis. Left external carotid artery: No flow-limiting stenosis. V1/V2 vertebral arteries: No flow-limiting stenosis. Vertebral artery dominance: Codominant. NECK Soft tissues: Normal. Bones: Normal. Lung apices: Clear. Additional comment: None. IMPRESSION: 1.No flow-limiting internal carotid artery stenosis by NASCET criteria. 2. No evidence of an intracerebral artery stenosis or aneurysm. 3. No acute intracranial hemorrhage or ischemic infarct. 4. Mild generalized parenchymal volume loss. 5. Mild microvascular white matter ischemic disease. Critical results: Results of this examination called by this radiologist to the emergency department at 04:08 p.[address]. the discussed with Dr. Stokes Physician Aicha Date Time Electronically viewed and signed by Leonardo Card Physician on 05/18/2017 16:11 RR/
[2017-05-18] MEDS ORDERED: SOD CHLORIDE 0.9% 1,000 ML IV ONE (16:30)
--- NOTE | 2017-05-18 16:59 | CONS ---
Date/Time of Note Date/Time of Note DATE: 05/18/17 TIME: 16:56 Assessment/Plan Assessment/Plan Chief Complaint/Hosp Course slurred speech it is being worked up CP and hx of CAD Will need trops and echo and will follow up Problems: Consultation Date/Type/Reason Admit Date/Time Hx of Present Illness This is well known pt This is a 61 y/o male with recent coronary stent presented with slurred speech and cp The pt is admitted to the hospital now. Will follow up and do a work up Past Medical History Medical History: coronary artery disease Past Surgical History Past Surgical Hx: no surgical history Social History Smoking Status: Never smoker Drug Use: none Exam/Review of Systems Vital Signs Vitals Vital Signs Date Time Temp Pulse Resp B/P Pulse Ox O2 Delivery O2 Flow Rate FiO2 05/18/17 16:00 98.3 60 20 81/41 95 Room Air Exam Constitutional: alert Respiratory: clear to auscultation Cardiovascular: regular rate and rhythm Gastrointestinal: soft Results Result Diagram: 05/18/17 1300 05/18/17 1300 Results 24 hrs Laboratory Tests Test 05/18/17 13:00 White Blood Count 8.0 # Red Blood Count 5.36 Hemoglobin 15.1 Hematocrit 45.3 Mean Corpuscular Volume 84.5 Mean Corpuscular Hemoglobin 28.2 L Mean Corpuscular Hemoglobin Concent 33.3 Red Cell Distribution Width 13.3 Platelet Count 229 Mean Platelet Volume 8.8 Neutrophils % 50.1 Lymphocytes % 33.7 Monocytes % 11.6 H Eosinophils % 3.3 Basophils % 0.8 Nucleated Red Blood Cells % 0.0 Neutrophils # 4.0 Lymphocytes # 2.7 Monocytes # 0.9 Eosinophils # 0.3 Basophils # 0.1 Nucleated Red Blood Cells # 0.0 Prothrombin Time 11.7 L Prothrombin Time Ratio 0.9 INR International Normalized Ratio 0.85 Sodium Level 140 Potassium Level 4.5 Chloride Level 104 Carbon Dioxide Level 27 Anion Gap 14 Blood Urea Nitrogen 14 Creatinine 0.92 Glucose Level 94 Calcium Level 9.2 Total Bilirubin 0.5 Direct Bilirubin 0.00 Indirect Bilirubin 0.5 Aspartate Amino Transf (AST/SGOT) 33 Alanine Aminotransferase (ALT/SGPT) 92 H Alkaline Phosphatase 41 L Troponin I 0.012 Total Protein 6.7 Albumin 4.0 Globulin 2.70 Albumin/Globulin Ratio 1.48 Lipase 103 Medications Medications Current Medications Sodium Chloride (NS) 1,000 ml @ 1,000 mls/hr Q1H ONCE IV Last administered on 05/18/17t 16:49; Admin Dose 1,000 MLS/HR; Start 05/18/17 at 16:30; Stop at 17:29 KENJI JACKSON MD May 18, 2017 16:59
[2017-05-18] MEDS ORDERED: ATORVASTATIN 40 MG TAB PO ONE (17:00)
--- NOTE | 2017-05-18 18:01 | HP ---
Date/Time of Note Date/Time of Note DATE: 05/18/17 TIME: 17:56 Assessment/Plan VTE Prophylaxis VTE Prophylaxis Intervention: LMWH Assessment/Plan Chief Complaint/Hosp Course 1. chest pain. further work up with dr. Mabry, cardiology 2. Possible stroke. Dr Aleman will see pt 3. GERD 4. CAD 5. S/p heart stents placement 6. elevated ALT Problems: Assessment/Plan 1. Admitted to telemetry 2. Strole work out 3. MRI brain 4. Start his home meds 5. toxic screen HPI/ROS Admit Date/Time Admit Date/Time Hx of Present Illness 61-year-old man with 2 complaints including left facial paresis and paresthesias started 3 days ago, some gait ataxia, and mild slurred speech. He denies difficulty swallowing and denies weakness in his arms or legs. Patient also states today he developed pressure-like sensation to the substernal chest, radiating to the back. He states he used aspirin and an extra dose of nitroglycerin this morning with some relief in those symptoms. He is status post PCI and stent placement 1 month ago. Patient denies fevers or chills, no shortness of breath, no cough, no calf or leg swelling, no vomiting, no headache or blurry vision. ROS Eyes: no complaints ENT: no complaints Respiratory: cough, no complaints, shortness of breath, sputum, No other, No pain, No pleuritic pain, No wheezing Cardiovascular: chest pain, edema, lightheadedness, orthopenea, palpitations, No no complaints, No other, No paroxysmal nocturnal dyspnea Gastrointestinal: no complaints Musculoskeletal: bone/joint pain (right elbow) Skin: no complaints Neurologic: confusion, dizziness, headache, seizure, syncope, No focal-weakness, No no complaints, No other Endocrine: polydypsia, polyuria, No dry skin, No no complaints, No other, No temp intolerance, No weight change Psychological: no complaints PMH/Family/Social Past Medical History Medical History: coronary artery disease, GERD, hypertension Past Surgical History Past Surgical Hx: no surgical history, other (5 stents in total) Family History Significant Family History: hypertension, other (srokes his mother, uncle) Social History Alcohol Use: none Smoking Status: Former smoker Drug Use: none Exam/Review of Systems Vital Signs Vitals Vital Signs Date Time Temp Pulse Resp B/P Pulse Ox O2 Delivery O2 Flow Rate FiO2 05/18/17 17:50 98.3 61 20 97/59 100 Room Air Exam Constitutional: alert, oriented Psych: no complaints Head: normocephalic, other (symmetrical bilaterally) Eyes: nl conjunctiva ENMT: nl external ears & nose Neck: supple Respiratory: clear to auscultation Cardiovascular: regular rate and rhythm Gastrointestinal: soft Musculoskeletal: nl extremities to inspection Neurological: RED MUD THICKENER OPERATOR II-XII intact, nl mental status Labs Result Diagram: 05/18/17 1300 05/18/17 RENÉE ETIENNE May 18, 2017 18:01
[2017-05-18] MEDS ORDERED: ONDANSETRON 4 MG INJ IV PRN (18:30)
[2017-05-18] MEDS ORDERED: HYDROCODONE/APAP (5/325) TAB PO PRN (18:30)
[2017-05-18] MEDS ORDERED: NACL 0.9% 3 ML SYG IV SCH (18:30)
[2017-05-18] MEDS ORDERED: DOCUSATE SODIUM 100 MG CAP PO PRN (18:30)
[2017-05-18 20:23] VITALS: TEMP 98.6
[2017-05-18 21:00] VITALS: Ht 172.7 cm; Wt 79.5 kg
[2017-05-18] MEDS: ISOSORBIDE DINITRATE 20 MG TAB PO SCH (21:00)
[2017-05-18] MEDS: METOPROLOL 25 MG TAB PO SCH (21:00)
[2017-05-18 21:05] VITALS: BP 95/59; PULSE 59; RESP 20
[2017-05-18 21:17] VITALS: PULSE 66
[2017-05-18] MEDS: morphine 2 MG INJ IV PRN (21:43)
[2017-05-18] MEDS: ATORVASTATIN 40 MG TAB PO SCH (21:43)
[2017-05-19] VITALS (12 sets, daily range): BP systolic 105–138; BP diastolic 54–71; PULSE 54–61; RESP 17–20
[2017-05-19] MEDS: ZOLPIDEM 5 MG TAB PO PRN ×2 (00:35→22:49)
[2017-05-19 01:48] LABS: BARBITURATES Negative (NEGATIVE)
[2017-05-19 02:15] LABS: CANNABINOIDS Negative (NEGATIVE); COCAINE Negative (NEGATIVE); OPIATES Positive (NEGATIVE)
[2017-05-19 04:31] LABS: BENZODIAZEPINES Negative (NEGATIVE)
[2017-05-19] MEDS: PANTOPRAZOLE (EC) 40 MG TAB PO SCH (06:00)
[2017-05-19 06:11] LABS: BASOPHILS % 0.5 % (0.0-2.0); EOSINOPHILS # 0.3 10^3/ul (0.0-0.5); EOSINOPHILS % 4.4 % (0.0-7.0); HEMATOCRIT 41.8 % (42.0-52.0); LYMPHOCYTES # 2.2 10^3/ul (0.8-2.9); LYMPHOCYTES % 27.7 % (15.0-51.0); MEAN CORPUSCULAR HEMOGLOBIN 28.6 pg (29.0-33.0); MEAN CORPUSCULAR HGB CONC 33.5 g/dl (32.0-37.0); MEAN CORPUSCULAR VOLUME 85.3 fl (82.0-101.0); MONOCYTE # 0.9 10^3/ul (0.3-0.9); MONOCYTES % 11.1 % (0.0-11.0); NEUTROPHIL # 4.4 10^3/ul (1.6-7.5); PLATELET COUNT 188 10^3/UL (140-415); RED CELL DISTRIBUTION WIDTH 13.3 % (11.5-14.5); WHITE BLOOD COUNT 7.8 10^3/ul (4.8-10.8)
[2017-05-19 06:58] LABS: ALBUMIN 3.4 g/dl (3.3-4.9); ALBUMIN/GLOBULIN RATIO 1.54; BILIRUBIN,INDIRECT 0.4 mg/dl (0-1.1); BILIRUBIN,TOTAL 0.4 mg/dl (0.2-1.3); CALCIUM 8.7 mg/dl (8.4-10.2); CREATININE 0.85 mg/dl (0.61-1.24); POTASSIUM 4.5 mmol/L (3.5-5.1); TOTAL PROTEIN 5.6 g/dl (6.1-8.1)
--- NOTE | 2017-05-19 08:30 | CONS ---
Date/Time of Note Date/Time of Note DATE: 05/19/17 TIME: 08:28 Assessment/Plan Assessment/Plan Chief Complaint/Hosp Course The pt needs an MRI of the Brain. But the MRI machine is not functional today. The pt will cont the meds and have the MRI in AM. the Slurred speech is better. Problems: Consultation Date/Type/Reason Admit Date/Time May 18, 2017 at 14:44 Initial Consult Date 24 HR Interval Summary Free Text/Dictation The pt is feeling a bit better, but still complaining of some left sided face tingling No sig. chest pain now. Exam/Review of Systems Vital Signs Vitals Vital Signs Date Time Temp Pulse Resp B/P Pulse Ox O2 Delivery O2 Flow Rate FiO2 05/19/17 08:02 98.0 66 18 138/71 98 05/18/17 21:05 Room Air Intake and Output 05/18/17 05/18/17 05/19/17 15:00 23:00 07:00 Intake Total 800 ml Balance 800 ml Exam Constitutional: alert Eyes: nl conjunctiva Neck: supple Respiratory: clear to auscultation Cardiovascular: regular rate and rhythm Results Result Diagram: 05/19/17 0549 05/19/17 0549 Results 24 hrs Laboratory Tests Test 05/18/17 13:00 05/18/17 19:26 05/18/17 23:00 05/19/17 05:49 White Blood Count 8.0 # 7.8 Red Blood Count 5.36 4.90 Hemoglobin 15.1 14.0 Hematocrit 45.3 41.8 L Mean Corpuscular Volume 84.5 85.3 Mean Corpuscular Hemoglobin 28.2 L 28.6 L Mean Corpuscular Hemoglobin Concent 33.3 33.5 Red Cell Distribution Width 13.3 13.3 Platelet Count 229 199 188 Mean Platelet Volume 8.8 9.0 Neutrophils % 50.1 56.0 Lymphocytes % 33.7 27.7 Monocytes % 11.6 H 11.1 H Eosinophils % 3.3 4.4 Basophils % 0.8 0.5 Nucleated Red Blood Cells % 0.0 0.0 Neutrophils # 4.0 4.4 Lymphocytes # 2.7 2.2 Monocytes # 0.9 0.9 Eosinophils # 0.3 0.3 Basophils # 0.1 0.0 Nucleated Red Blood Cells # 0.0 0.0 Prothrombin Time 11.7 L Prothrombin Time Ratio 0.9 INR International Normalized Ratio 0.85 Sodium Level 140 140 Potassium Level 4.5 4.5 Chloride Level 104 107 Carbon Dioxide Level 27 24 Anion Gap 14 14 Blood Urea Nitrogen 14 13 Creatinine 0.92 0.85 Glucose Level 94 104 Calcium Level 9.2 8.7 Total Bilirubin 0.5 0.4 Direct Bilirubin 0.00 0.00 Indirect Bilirubin 0.5 0.4 Aspartate Amino Transf (AST/SGOT) 33 31 Alanine Aminotransferase (ALT/SGPT) 92 H 83 H Alkaline Phosphatase 41 L 35 L Troponin I 0.012 Total Protein 6.7 5.6 #L Albumin 4.0 3.4 Globulin 2.70 2.20 Albumin/Globulin Ratio 1.48 1.54 Lipase 103 Urine Opiates Screen Positive Urine Barbiturates Negative Urine Amphetamines Screen Negative Urine Benzodiazepines Screen Negative Urine Cocaine Screen Negative Urine Cannabinoids Negative Medications Medications Current Medications Ondansetron HCl (Zofran Inj) 4 mg Q6H PRN IV NAUSEA AND/OR VOMITING; Start 05/18/17 at 18:30 Acetaminophen (Tylenol Tab) 650 mg Q6H PRN PO PAIN LEVEL 1-3 OR FEVER; Start 05/18/17 at 18:30 Acetaminophen/ Hydrocodone Bitart ([place] (5/325)) 1 tab Q6H PRN PO MODERATE PAIN LEVEL 4-6; Start 05/18/17 at 18:30 Morphine Sulfate (morphine) 2 mg Q4H PRN IV SEVERE PAIN LEVEL 7-10 Last administered on 05/18/17 21:43; Admin Dose 2 MG; Start 05/18/17 at 18:30 Docusate Sodium (Colace) 100 mg Q12H PRN PO CONSTIPATION; Start 05/18/17 at 18: 30 Zolpidem Tartrate (Ambien) 5 mg QHS PRN PO SLEEP Last administered on 00:35; Admin Dose 5 MG; Start 05/18/17 at 18:30 Pantoprazole (Protonix Tab) 40 mg DAILY@06 PO Last administered on 05/19/17 06:00; Admin Dose 40 MG; Start 05/19/17 at 06:00 Enoxaparin Sodium (Lovenox) 40 mg DAILY SC ; Start 05/19/17 at 09:00 Aspirin (Aspirin) 81 mg DAILY PO ; Start 05/19/17 at 09:00 Atorvastatin Calcium (Lipitor) 40 mg QHS PO Last administered on 05/18/17t 21: 43; Admin Dose 40 MG; Start 05/18/17 at 21:00 Clopidogrel Bisulfate (plaVIX) 75 mg DAILY PO ; Start 05/19/17 at 09:00 Isosorbide Dinitrate (Isordil) 20 mg TID PO ; Start 05/18/17 at 21:00 Lisinopril (Zestril) 2.5 mg DAILY PO ; Start 05/19/17 at 09:00 Metoprolol Tartrate (Lopressor) 25 mg BID PO ; Start 05/18/17 at 21:00 Influenza Virus Vaccine (Fluzone) 0.5 ml ONCE ONCE IM* ; Start 05/20/17 at 09: 00; Stop 05/20/17 at 09:01 KENJI JACKSON MD May 19, 2017 08:30
[2017-05-19] MEDS: ISOSORBIDE DINITRATE 20 MG TAB PO SCH ×3 (08:35→20:22)
[2017-05-19] MEDS: CLOPIDOGREL 75 MG TAB PO SCH (08:35)
[2017-05-19] MEDS: METOPROLOL 25 MG TAB PO SCH ×2 (08:35→20:31)
[2017-05-19] MEDS: ASPIRIN 81 MG TAB PO SCH (08:36)
[2017-05-19] MEDS: LISINOPRIL 5 MG TAB PO SCH (08:36)
[2017-05-19] MEDS: ENOXAPARIN 40 MG/0.4 ML SYG SC SCH (08:42)
--- NOTE | 2017-05-19 14:27 | PN ---
Date/Time of Note Date/Time of Note DATE: 05/19/17 TIME: 14:24 Assessment/Plan VTE Prophylaxis VTE Prophylaxis Intervention: ambulation Lines/Catheters IV Catheter Type (from Nrsg): Saline Lock Assessment/Plan Chief Complaint/Hosp Course 1. chest pain, better, Trop is negative. 2. Possible stroke. Dr Anderson will see pt 3. GERD, stable 4. CAD 5. S/p heart stents placement 6. elevated ALT 7. right elbow pain 8. Pos opiates urine drug screen Problems: Assessment/Plan 1. keep telemetry 2. MRI on Saturday Subjective 24 Hr Interval Summary Free Text/Dictation pt is walking in hallway Constitutional: improved Eyes: no complaints ENT: no complaints, other (left side of the face tingling) Respiratory: pleuritic pain, shortness of breath, No cough, No no complaints, No other, No pain, No sputum, No wheezing Cardiovascular: chest pain, edema, lightheadedness, orthopenea, palpitations, No no complaints, No other, No paroxysmal nocturnal dyspnea Gastrointestinal: no complaints Genitourinary: no complaints Musculoskeletal: restricted range of motion (right elbow) Skin: no complaints Neurologic: no complaints Exam/Review of Systems Vital Signs Vitals Vital Signs Date Time Temp Pulse Resp B/P Pulse Ox O2 Delivery O2 Flow Rate FiO2 05/19/17 12:24 98.0 57 18 105/62 98 05/18/17 21:05 Room Air Intake and Output 05/18/17 05/18/17 05/19/17 15:00 23:00 07:00 Intake Total 800 ml Balance 800 ml Exam Constitutional: alert, oriented ENMT: nl external ears & nose Neck: supple Respiratory: clear to auscultation Cardiovascular: regular rate and rhythm Musculoskeletal: other (Full ROM right elbow) Neurological: SLUBBER TENDER II-XII intact, nl mental status, nl speech Results Result Diagram: 05/19/17 0549 05/19/17 0549 Results 24 hrs Laboratory Tests Test 05/18/17 19:26 05/18/17 23:00 05/19/17 05:49 Platelet Count 199 188 Urine Opiates Screen Positive Urine Barbiturates Negative Urine Amphetamines Screen Negative Urine Benzodiazepines Screen Negative Urine Cocaine Screen Negative Urine Cannabinoids Negative White Blood Count 7.8 Red Blood Count 4.90 Hemoglobin 14.0 Hematocrit 41.8 L Mean Corpuscular Volume 85.3 Mean Corpuscular Hemoglobin 28.6 L Mean Corpuscular Hemoglobin Concent 33.5 Red Cell Distribution Width 13.3 Mean Platelet Volume 9.0 Neutrophils % 56.0 Lymphocytes % 27.7 Monocytes % 11.1 H Eosinophils % 4.4 Basophils % 0.5 Nucleated Red Blood Cells % 0.0 Neutrophils # 4.4 Lymphocytes # 2.2 Monocytes # 0.9 Eosinophils # 0.3 Basophils # 0.0 Nucleated Red Blood Cells # 0.0 Sodium Level 140 Potassium Level 4.5 Chloride Level 107 Carbon Dioxide Level 24 Anion Gap 14 Blood Urea Nitrogen 13 Creatinine 0.85 Glucose Level 104 Calcium Level 8.7 Total Bilirubin 0.4 Direct Bilirubin 0.00 Indirect Bilirubin 0.4 Aspartate Amino Transf (AST/SGOT) 31 Alanine Aminotransferase (ALT/SGPT) 83 H Alkaline Phosphatase 35 L Total Protein 5.6 #L Albumin 3.4 Globulin 2.20 Albumin/Globulin Ratio 1.54 Medications Medications Current Medications Ondansetron HCl (Zofran Inj) 4 mg Q6H PRN IV NAUSEA AND/OR VOMITING; Start 05/18/17 at 18:30 Acetaminophen (Tylenol Tab) 650 mg Q6H PRN PO PAIN LEVEL 1-3 OR FEVER; Start 05/18/17 at 18:30 Acetaminophen/ Hydrocodone Bitart (Laura (5/325)) 1 tab Q6H PRN PO MODERATE PAIN LEVEL 4-6; Start 05/18/17 at 18:30 Morphine Sulfate (morphine) 2 mg Q4H PRN IV SEVERE PAIN LEVEL 7-10 Last administered on 05/18/17 21:43; Admin Dose 2 MG; Start 05/18/17 at 18:30 Docusate Sodium (Colace) 100 mg Q12H PRN PO CONSTIPATION; Start 05/18/17 at 18: 30 Zolpidem Tartrate (Ambien) 5 mg QHS PRN PO SLEEP Last administered on 00:35; Admin Dose 5 MG; Start 05/18/17 at 18:30 Pantoprazole (Protonix Tab) 40 mg DAILY@06 PO Last administered on 05/19/17 06:00; Admin Dose 40 MG; Start 05/19/17 at 06:00 Enoxaparin Sodium (Lovenox) 40 mg DAILY SC Last administered on 05/19/17 08: 42; Admin Dose 40 MG; Start 05/19/17 at 09:00 Aspirin (Aspirin) 81 mg DAILY PO Last administered on 05/19/17 08:36; Admin Dose 81 MG; Start 05/19/17 at 09:00 Atorvastatin Calcium (Lipitor) 40 mg QHS PO Last administered on 05/18/17 21: 43; Admin Dose 40 MG; Start 05/18/17 at 21:00 Clopidogrel Bisulfate (plaVIX) 75 mg DAILY PO Last administered on 05/19/17 08:35; Admin Dose 75 MG; Start 05/19/17 at 09:00 Isosorbide Dinitrate (Isordil) 20 mg TID PO Last administered on 05/19/17 08: 35; Admin Dose 20 MG; Start 05/18/17 at 21:00 Lisinopril (Zestril) 2.5 mg DAILY PO Last administered on 05/19/17 08:36; Admin Dose 2.5 MG; Start 05/19/17 at 09:00 Metoprolol Tartrate (Lopressor) 25 mg BID PO Last administered on 05/19/17 08 :35; Admin Dose 25 MG; Start 05/18/17 at 21:00 Influenza Virus Vaccine (Fluzone) 0.5 ml ONCE ONCE IM* ; Start 05/20/17 at 09: 00; Stop 05/20/17 at 09:01 RENÉE MARTIN May 19, 2017 14:27
[2017-05-19] MEDS: ATORVASTATIN 40 MG TAB PO SCH (20:21)
[2017-05-19] MEDS: ACETAMINOPHEN 325 MG TAB PO PRN (20:30)
[2017-05-19] MEDS: morphine 2 MG INJ IV PRN (22:50)
[2017-05-20] VITALS (13 sets, daily range): BP systolic 96–115; BP diastolic 51–63; PULSE 51–75; RESP 16–20
[2017-05-20] MEDS: PANTOPRAZOLE (EC) 40 MG TAB PO SCH (06:02)
[2017-05-20] MEDS ORDERED: ASPIRIN 81 MG TAB PO SCH (09:00)
[2017-05-20] MEDS ORDERED: INFLUENZA VIRUS VACCINE 0.5 ML (DISPENSING) IM* ONE (09:00)
[2017-05-20] MEDS: CLOPIDOGREL 75 MG TAB PO SCH (09:02)
[2017-05-20] MEDS: METOPROLOL 25 MG TAB PO SCH ×2 (09:03→22:36)
[2017-05-20] MEDS: LISINOPRIL 5 MG TAB PO SCH (09:03)
[2017-05-20] MEDS: ASPIRIN 81 MG TAB PO SCH (09:03)
[2017-05-20] MEDS: ISOSORBIDE DINITRATE 20 MG TAB PO SCH ×3 (09:04→22:35)
[2017-05-20] MEDS: ENOXAPARIN 40 MG/0.4 ML SYG SC SCH (09:09)
--- NOTE | 2017-05-20 14:43 | PN ---
Date/Time of Note Date/Time of Note DATE: 05/20/17 TIME: 14:38 Assessment/Plan VTE Prophylaxis VTE Prophylaxis Intervention: LMWH Lines/Catheters IV Catheter Type (from Nrsg): Saline Lock Assessment/Plan Chief Complaint/Hosp Course hief Complaint/Hosp Course 1. chest pain, better, Trop Sis negative. 2. Possible stroke. Dr Anderson will see pt 3. GERD, stable 4. CAD 5. S/p heart stents placement 6. elevated ALT Recs - MRI tmw as machine is broken today - c/w ASA/Plavix/imdur/ MTP/Statin/Lisnopril - Seen by cards - Francisco Javier neg so far - Spoke to patient and informed about machine being broken today Problems: Subjective 24 Hr Interval Summary Free Text/Dictation MRI machine still not working, likley be fine tmw Pt chest pain is resolved Exam/Review of Systems Vital Signs Vitals Vital Signs Date Time Temp Pulse Resp B/P Pulse Ox O2 Delivery O2 Flow Rate FiO2 05/20/17 12:06 55 05/20/17 11:54 97.5 20 103/55 100 05/18/17 21:05 Room Air Intake and Output 05/19/17 05/19/17 05/20/17 15:00 23:00 07:00 Intake Total 700 ml Balance 700 ml Exam Constitutional: alert, oriented ENMT: nl external ears & nose Neck: supple Respiratory: clear to auscultation Cardiovascular: regular rate and rhythm Musculoskeletal: other (Full ROM right elbow) Neurological: GLASS DESIGNER II-XII intact, nl mental status, nl speech Results Result Diagram: 05/19/17 0549 05/19/17 0549 Results 24 hrs Laboratory Tests Test 05/19/17 17:42 Troponin I 0.014 Medications Medications Current Medications Ondansetron HCl (Zofran Inj) 4 mg Q6H PRN IV NAUSEA AND/OR VOMITING Last administered on 05/20/17 00:19; Admin Dose 4 MG; Start 05/18/17 at 18:30 Acetaminophen (Tylenol Tab) 650 mg Q6H PRN PO PAIN LEVEL 1-3 OR FEVER Last administered on 05/19/17 20:30; Admin Dose 650 MG; Start 05/18/17 at 18:30 Acetaminophen/ Hydrocodone Bitart (Vinson (5/325)) 1 tab Q6H PRN PO MODERATE PAIN LEVEL 4-6; Start 05/18/17 at 18:30 Morphine Sulfate (morphine) 2 mg Q4H PRN IV SEVERE PAIN LEVEL 7-10 Last administered on 05/19/17 22:50; Admin Dose 2 MG; Start 05/18/17 at 18:30 Docusate Sodium (Colace) 100 mg Q12H PRN PO CONSTIPATION; Start 05/18/17 at 18: 30 Zolpidem Tartrate (Ambien) 5 mg QHS PRN PO SLEEP Last administered on 22:49; Admin Dose 5 MG; Start 05/18/17 at 18:30 Pantoprazole (Protonix Tab) 40 mg DAILY@06 PO Last administered on 05/20/17 06:02; Admin Dose 40 MG; Start 05/19/17 at 06:00 Enoxaparin Sodium (Lovenox) 40 mg DAILY SC Last administered on 05/20/17 09: 09; Admin Dose 40 MG; Start 05/19/17 at 09:00 Aspirin (Aspirin) 81 mg DAILY PO Last administered on 05/20/17 09:03; Admin Dose 81 MG; Start 05/19/17 at 09:00 Atorvastatin Calcium (Lipitor) 40 mg QHS PO Last administered on 05/19/17 20: 21; Admin Dose 40 MG; Start 05/18/17 at 21:00 Clopidogrel Bisulfate (plaVIX) 75 mg DAILY PO Last administered on 05/20/17 09:02; Admin Dose 75 MG; Start 05/19/17 at 09:00 Isosorbide Dinitrate (Isordil) 20 mg TID PO Last administered on 05/20/17 12: 20; Admin Dose 20 MG; Start 05/18/17 at 21:00 Lisinopril (Zestril) 2.5 mg DAILY PO Last administered on 05/20/17 09:03; Admin Dose 2.5 MG; Start 05/19/17 at 09:00 Metoprolol Tartrate (Lopressor) 25 mg BID PO Last administered on 05/20/17 09 :03; Admin Dose 25 MG; Start 05/18/17 at 21:00 JESSICA ROSA MD May 20, 2017 14:43
--- NOTE | 2017-05-20 14:46 | RADRPT ---
Echocardiogram Report Patient Name: CLAUDIA BEST Gender: Male Date: 1955 Study Date: 19-May-2017 Egg Smeller: BONNIE Location: E Ref. Physician: KENJI JACKSON Quality: Adequate Procedures: Transthoracic echocardiogram with complete 2D, M-Mode, and Doppler examination. Indications: Shortness of breath. 2D/M Mode Doppler Measurement Value Normal Ranges Measurement Value Normal Ranges AoR Diam MM 3.4 cm AV Peak Luke 1.1 m/sec ACS MM 2.0 cm AV Peak PG 5.1 mmHg LVIDd 2D 5.4 3.5 - 5.6 cm LVOT Peak Luke 0.9 m/sec LVIDs 2D 3.3 2.1 - 4.1 cm LVOT Peak PG 3.0 mmHg LVPWd 2D 1.0 0.6 - 1.1 cm MV E Peak Luke 0.6 m/sec IVSd 2D 1.1 0.6 - 1.1 cm MV A Peak Luke 0.7 m/sec EDV 2D 139.0 cm3 MV E/A 0.8 ESV 2D 35.7 cm3 MV Decel Time 208 msec LA Dimen 2D 3.6 2.3 - 4.0 cm MV Decel Mcmullen 3 MV E/A 0.8 PV Peak Luke 1.0 m/sec PV Peak PG 4.0 mmHg Findings Left Ventricle: Normal left ventricular systolic function. Normal left ventricular cavity size. Normal left ventricular wall thickness. Ejection fraction is visually estimated at 55 %. Tissue Doppler/Mitral Doppler indices are consistent with impaired relaxation (Stage I diastolic dysfunction). E/E`=7. Right Ventricle: Normal right ventricular size. Normal right ventricular systolic function. Left Atrium: The left atrium is normal in size. Right Atrium: The right atrium is normal in size. Atrial Septum: Normal atrial septum. Mitral Valve: Normal appearance of the mitral valve. No mitral valve regurgitation is seen. Aortic Valve: No significant aortic stenosis or insufficiency. Normal trileaflet aortic valve structure. Tricuspid Valve: Normal appearance of the tricuspid valve. No evidence of tricuspid regurgitation. Pulmonic Valve: Normal pulmonic valve appearance. No evidence of pulmonic regurgitation. Pericardium: Normal pericardium with no significant pericardial effusion. No pleural effusion noted. Aorta: Normal aortic root. IVC: Normal size and normal respiratory collapse consistent with normal right atrial pressure. Pulmonary Artery: Normal pulmonary artery size. Conclusions 1.Normal left ventricular systolic function. Normal left ventricular cavity size. Normal left ventricular wall thickness. Ejection fraction is visually estimated at 55 %. Tissue Doppler/Mitral Doppler indices are consistent with impaired relaxation (Stage I diastolic dysfunction). E/E`=7. 2.Normal appearance of the mitral valve. No mitral valve regurgitation is seen. 3.No significant aortic stenosis or insufficiency. Normal trileaflet aortic valve structure. 4.Normal appearance of the tricuspid valve. No evidence of tricuspid regurgitation. Electronically Signed By: Tony Concepcion 20-May-2017 14:45:13 -0800 Patient Name: CLAUDIA BEST Study Date: 19-May-[id number]
[2017-05-20] MEDS: ATORVASTATIN 40 MG TAB PO SCH (22:35)
[2017-05-20] MEDS: GUAIFENESIN/DM 5ML CUP PO PRN (22:36)
[2017-05-21] VITALS (8 sets, daily range): BP systolic 92–105; BP diastolic 54–57; PULSE 64–81; RESP 16–20
[2017-05-21] MEDS: PANTOPRAZOLE (EC) 40 MG TAB PO SCH (05:27)
[2017-05-21] MEDS: GUAIFENESIN/DM 5ML CUP PO PRN (07:34)
[2017-05-21] MEDS: ENOXAPARIN 40 MG/0.4 ML SYG SC SCH (09:00)
[2017-05-21] MEDS: ASPIRIN 81 MG TAB PO SCH (09:01)
[2017-05-21] MEDS: CLOPIDOGREL 75 MG TAB PO SCH (09:02)
[2017-05-21] MEDS: LISINOPRIL 5 MG TAB PO SCH (09:03)
[2017-05-21] MEDS: ISOSORBIDE DINITRATE 20 MG TAB PO SCH ×2 (09:04→14:38)
[2017-05-21] MEDS: METOPROLOL 25 MG TAB PO SCH (09:04)
[2017-05-21] MEDS: ACETAMINOPHEN 325 MG TAB PO PRN (10:19)
--- NOTE | 2017-05-21 14:27 | PN ---
Date/Time of Note Date/Time of Note DATE: 05/21/17 TIME: 14:22 Assessment/Plan VTE Prophylaxis VTE Prophylaxis Intervention: contraindicated Lines/Catheters IV Catheter Type (from Nrsg): Saline Lock Central line still needed: Yes Urinary Cath still in place: No Assessment/Plan Chief Complaint/Hosp Course hief Complaint/Hosp Course 1. chest pain, better, Trop Sis negative. 2. Possible stroke. Dr Anderson will see pt 3. GERD, stable 4. CAD 5. S/p heart stents placement 6. elevated ALT Recs - MRI tmw as machine is broken today - c/w ASA/Plavix/imdur/ MTP/Statin/Lisnopril - Seen by cards - Trop neg so far - Spoke to patient and informed about machine being broken today Problems: Subjective 24 Hr Interval Summary Free Text/Dictation MRI could not be done as machine still broken Pt denies any neuro deficits however has some cough Exam/Review of Systems Vital Signs Vitals Vital Signs Date Time Temp Pulse Resp B/P Pulse Ox O2 Delivery O2 Flow Rate FiO2 05/21/17 12:07 64 05/21/17 11:32 98.7 20 92/54 92 05/21/17 10:06 Room Air Intake and Output 05/20/17 05/20/17 05/21/17 15:00 23:00 07:00 Intake Total 900 ml 600 ml Balance 900 ml 600 ml Results Result Diagram: 05/19/17 0549 05/19/17 0549 Medications Medications Current Medications Ondansetron HCl (Zofran Inj) 4 mg Q6H PRN IV NAUSEA AND/OR VOMITING Last administered on 05/20/17 00:19; Admin Dose 4 MG; Start 05/18/17 at 18:30 Acetaminophen (Tylenol Tab) 650 mg Q6H PRN PO PAIN LEVEL 1-3 OR FEVER Last administered on 05/21/17 10:19; Admin Dose 650 MG; Start 05/18/17 at 18:30 Acetaminophen/ Hydrocodone Bitart (Pinola (5/325)) 1 tab Q6H PRN PO MODERATE PAIN LEVEL 4-6 Last administered on 05/20/17 18:59; Admin Dose 1 TAB; Start 05/18/17 at 18:30 Morphine Sulfate (morphine) 2 mg Q4H PRN IV SEVERE PAIN LEVEL 7-10 Last administered on 05/19/17 22:50; Admin Dose 2 MG; Start 05/18/17 at 18:30 Docusate Sodium (Colace) 100 mg Q12H PRN PO CONSTIPATION; Start 05/18/17 at 18: 30 Zolpidem Tartrate (Ambien) 5 mg QHS PRN PO SLEEP Last administered on 22:49; Admin Dose 5 MG; Start 05/18/17 at 18:30 Pantoprazole (Protonix Tab) 40 mg DAILY@06 PO Last administered on 05/21/17 05:27; Admin Dose 40 MG; Start 05/19/17 at 06:00 Enoxaparin Sodium (Lovenox) 40 mg DAILY SC Last administered on 05/20/17 09: 09; Admin Dose 40 MG; Start 05/19/17 at 09:00 Aspirin (Aspirin) 81 mg DAILY PO Last administered on 05/21/17 09:01; Admin Dose 81 MG; Start 05/19/17 at 09:00 Atorvastatin Calcium (Lipitor) 40 mg QHS PO Last administered on 05/20/17 22: 35; Admin Dose 40 MG; Start 05/18/17 at 21:00 Clopidogrel Bisulfate (plaVIX) 75 mg DAILY PO Last administered on 05/21/17 09:02; Admin Dose 75 MG; Start 05/19/17 at 09:00 Isosorbide Dinitrate (Isordil) 20 mg TID PO Last administered on 05/21/17 09: 04; Admin Dose 20 MG; Start 05/18/17 at 21:00 Lisinopril (Zestril) 2.5 mg DAILY PO Last administered on 05/21/17 09:03; Admin Dose 2.5 MG; Start 05/19/17 at 09:00 Metoprolol Tartrate (Lopressor) 25 mg BID PO Last administered on 05/21/17 09 :04; Admin Dose 25 MG; Start 05/18/17 at 21:00 Guaifenesin/ Dextromethorphan (Robitussin Dm Liquid Cup) 5 ml TID PRN PO COUGH Last administered on 05/21/17 07:34; Admin Dose 5 ML; Start 05/20/17 at 20:30 JESSICA ROSA MD May 21, 2017 14:26
--- NOTE | 2017-05-21 14:32 | PDOCDIS ---
Discharge Instructions DIAGNOSIS Discharge Diagnosis Atypical chest pain Cough likely bronchitis Slured speech, CT head negative to get MRI as outpatient CONDITION Patient Condition: Good HOME CARE INSTRUCTIONS: Diet Instructions: Low Fat /CholesterolSpecial Diet: low fat/chol ACTIVITY: Activity Restrictions: Slowly Increase Activity FOLLOW UP/APPOINTMENTS Follow-up Plan f/u PCP in 2 weeks Pt will need MRI as outpatient JESSICA ROSA MD May 21, 2017 14:32
[2017-05-21] MEDS ORDERED: TICA90TA PO (14:35)
[2017-05-21] MEDS ORDERED: UDROBDM PO (14:42)
== END 2017-05-21 15:06 | disposition home or self-care (01) | DRG 206 ==
LOC: E/R 10:31 → MS4 14:44
PROVIDERS: ADMIT Internal Medicine; ATTEND Internal Medicine
DX: M94.0 Chondrocostal junction syndrome [Tietze] (principal); I25.10 Atherosclerotic heart disease of native coronary artery without angina pectoris; K21.9 Gastro-esophageal reflux disease without esophagitis; R07.9 Chest pain, unspecified
CPT/HCPCS: 36415; 70450; 70496; 70498; 71010; 80053; 80307; 83690; 84484; 85025; 85049; 85610; 90686; 93005; 93306; 97161; J1650; J2270; J2405; J7030; Q9967